=== PATIENT | female | born 1975 | race Caucasian/White ===

== ENCOUNTER → 2019-01-06 | Outpatient (CLI) | payer OTHER ==
[~2019-01-06] MED LIST: DEXAMETH; DOXY100C42 PO; LOTE5DRO4 OP; POLYMYXIN
--- NOTE | 2019-01-06 10:15 | Diagnostic Imaging Report ---
PROCEDURE: MRI right joint lower extremity without contrast. TECHNIQUE: Multiplanar, multisequence non contrast-enhanced MRI of the right lower extremity was accomplished. INDICATION: Right knee pain and swelling, occasionally locks up. EXAMINATION: MRI of the right knee without contrast 01/06/2019. FINDINGS: The extensor mechanism, ACL and PCL intact. Lateral collateral ligamentous complex demonstrates mild thickening proximally along the lateral collateral ligament proper. However no discontinuity is appreciated. The MCL is intact but there is some adjacent edema suggesting possibly a mild sprain. There is internal hyperintensity throughout the posterior horn of the medial meniscus extending throughout the remaining meniscus. This is predominantly due to myxoid degeneration. A discrete tear is not appreciated. The lateral meniscus also contains diffuse T2 hyperintensity. Along the anterior horn, it appears to likely extend to the femoral and tibial surfaces suggesting a tear. There is diffuse edema throughout Hoffa's fat pad. Some of the T2 hyperintensity appears globular in nature. There is a more focal area of abnormal signal intensity immediately anterior to the lateral meniscus possibly a parameniscal cyst. On the axial T2 fat-saturated sequence there may be a continuity with this cystic area to the remaining larger area extending proximally towards the patella. Findings may all represent a large complex parameniscal cyst with other cystic lesions not excluded. There is a small joint effusion. There is a tiny slit-like Merritt's cyst. Additional tiny cystic changes posterior to the knee consistent with multiple small ganglia. The cartilage in the medial compartment demonstrates moderate thinning with mild thinning of cartilage laterally. Patellofemoral cartilage demonstrates diffuse heterogeneity with some areas of complete loss overlying the apex and lateral facet. Subchondral cystic change in the patella also noted. Heterogeneity of the visualized bone marrow signal is likely within normal limits for the patient. No fracture is identified. There is spurring and narrowing in the patellofemoral joint. IMPRESSION: 1. Findings along the MCL possibly on the basis of a mild sprain with thickening of the proximal lateral collateral ligament perhaps due to prior injury. A superimposed mild sprain not excluded remaining ligaments and tendons intact. 2. 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 A large anterior cystic collection could represent a large parameniscal cyst. The more proximal septated complex cystic area within Hoffa's fat pad may correspond to the parameniscal cyst, however other cystic lesions including a more aggressive process such as a synovial sarcoma difficult to exclude but felt to be much less likely. Postcontrast imaging may be useful to exclude any associated enhancement. 3. Tricompartmental degenerative findings as discussed above. Other incidental findings as noted. Dictated by: Dictated on workstation # [id number]
== END ==
LOC: RAD 07:53
PROVIDERS: ATTEND Nurse Practitioner Community Health
DX: M23.306 Other meniscus derangements, unspecified meniscus, right knee (principal); M17.11 Unilateral primary osteoarthritis, right knee
CPT/HCPCS: 73721

== ENCOUNTER 2022-12-11 17:55 | Emergency (ER) | payer OTHER ==
[~2022-12-11] VITALS: Ht 170.2 cm; Wt 136.1 kg
--- NOTE | 2022-12-11 18:25 | ED Chest Pain ---
General Chief Complaint: Chest Pain Stated Complaint: CHEST PRESSURE Nursing Triage Note: PT AMBULATE TO ROOM 07 WITHOUT DIFFICULTY WITH C/O CHEST PRESSURE STARTING AT 1640 TODAY. PT STATES PAIN LASTED APPROX X10MIN. PT DENIES PAIN UPON ARRIVAL. Source: patient Exam Limitations: no limitations History of Present Illness Date Seen by Provider: December 11, 2022 Time Seen by Provider: 18:17 Initial Comments 47-year-old female presents to the emergency department today for chest pain. She states there was a tightness in her anterior chest bilaterally that started about 430 this afternoon while she was sitting at her desk wrapping things up at work. She got slightly short of breath and lightheaded with it as well. Symptoms overall lasted about 10 minutes and spontaneously resolved. She has never had similar symptoms in the past. No history of cardiac disease. Only medications include Victoza and a medicine for high blood pressure. Has not re cent fevers chills cough abdominal pain, changes in bowel or bladder habits. She has no lung issues per her report. All other systems reviewed and negative except documented per HPI. Voice recognition software was used to help create this chart Allergies and Home Medications Allergies Coded Allergies: No Known Allergies (Unverified Allergy, Mild, 12/07/08) Patient Home Medication List Home Medication List Reviewed: Yes Doxycycline Monohydrate (Doxycycline) 100 Mg Capsule, 100 MG PO BID, (Reported) Entered as Reported by: ROBEL SCHMIDT on 01/03/15756 Loteprednol Etabonate (Lotemax) 5 Ml Drops.susp, 5 ML OP BID, (Reported) Entered as Reported by: ROBEL SCHMIDT on 01/03/15756 [Dexameth/Polymyxin] , BID, (Reported) Entered as Reported by: ROBEL SCHMIDT on 01/03/15756 Review of Systems Review of Systems Constitutional: see HPI Past Tdgvnbw-Izeqyc-Odbibs Hx Patient Social History Tobacco Use?: No Smoking Status: Former Smoker Smokeless Tobacco Frequency: Never a User Use of E-Cig and/or Vaping dev: No Use of E-Cig and/or Vaping Trace: Never a User Substance use?: Yes Substance type: Marijuana Substance frequency: Couple times a week Alcohol Use?: Yes Alcohol Frequency: Once in a while Pt feels they are or have been: No Immunizations Up To Date Tetanus Booster (TDap): Less than 5yrs Seasonal Allergies Seasonal Allergies: Yes Past Medical History Tubal Ligation Asthma Family Medical History Reviewed Nursing Family Hx No Pertinent Family Hx Physical Exam Vital Signs Vital Signs - First Documented 12/11/22 18:10 Temp 36.0 Pulse 86 Resp 19 B/P (MAP) 140/70 (93) O2 Delivery Room Air Capillary Refill : Less Than 3 Seconds Height, Weight, BMI Height: 5'8" Weight: 235lbs. oz. 106.061464fh; 46.00 BMI Method:Stated General Appearance: No Apparent Distress, WD/WN HEENT: Normal ENT Inspection, Pharynx Normal Neck: Normal Inspection, Supple Respiratory: Chest Non Tender, Lungs Clear, Normal Breath Sounds, No Accessory Muscle Use, No Respiratory Distress Cardiovascular: Regular Rate, Rhythm, No Murmur, Normal Peripheral Pulses, Other (Occasional PVC on monitoring tech) Gastrointestinal: Normal Bowel Sounds, No Organomegaly, Non Tender, Soft Extremity: Normal Capillary Refill, Non Tender, No Calf Tenderness, No Pedal Edema Neurologic/Psychiatric: Alert, Oriented x3, Normal Mood/Affect Skin: Normal Color, Warm/Dry Progress/Results/Core Measures Results/Orders Lab Results Laboratory Tests Test 12/11/22 18:22 Range/Units White Blood Count 11.0 4.3-11.0 10^3/uL Red Blood Count 4.31 3.80-5.11 10^6/uL Hemoglobin 11.2 L 11.5-16.0 g/dL Hematocrit 36 35-52 % Mean Corpuscular Volume 82 80-99 fL Mean Corpuscular Hemoglobin 26 25-34 pg Mean Corpuscular Hemoglobin Concent 32 32-36 g/dL Red Cell Distribution Width 16.3 H 10.0-14.5 % Platelet Count 194 130-400 10^3/uL Mean Platelet Volume 11.6 9.0-12.2 fL Immature Granulocyte % (Auto) 0 % Neutrophils (%) (Auto) 68 42-75 % Lymphocytes (%) (Auto) 25 12-44 % Monocytes (%) (Auto) 5 0-12 % Eosinophils (%) (Auto) 2 0-10 % Basophils (%) (Auto) 0 0-10 % Neutrophils # (Auto) 7.4 1.8-7.8 10^3/uL Lymphocytes # (Auto) 2.7 1.0-4.0 10^3/uL Monocytes # (Auto) 0.6 0.0-1.0 10^3/uL Eosinophils # (Auto) 0.2 0.0-0.3 10^3/uL Basophils # (Auto) 0.0 0.0-0.1 10^3/uL Immature Granulocyte # (Auto) 0.0 0.0-0.1 10^3/uL Sodium Level 139 135-145 MMOL/L Potassium Level 3.7 3.6-5.0 MMOL/L Chloride Level 108 H 98-107 MMOL/L Carbon Dioxide Level 21 21-32 MMOL/L Anion Gap 10 5-14 MMOL/L Blood Urea Nitrogen 9 7-18 MG/DL Creatinine 0.67 0.60-1.30 MG/DL Estimat Glomerular Filtration Rate 109 BUN/Creatinine Ratio 13 Glucose Level 88 70-105 MG/DL Calcium Level 9.2 8.5-10.1 MG/DL Corrected Calcium 9.1 8.5-10.1 MG/DL Magnesium Level 2.1 1.6-2.4 MG/DL Total Bilirubin 0.5 0.1-1.0 MG/DL Aspartate Amino Transf (AST/SGOT) 16 5-34 U/L Alanine Aminotransferase (ALT/SGPT) 16 0-55 U/L Alkaline Phosphatase 53 40-136 U/L Troponin I < 0.028 <0.028 NG/ML Total Protein 6.9 6.4-8.2 GM/DL Albumin 4.1 3.2-4.5 GM/DL My Orders Orders - JOHNNY SCHRADER DO Ekg Tracing (12/11/22 18:07) Cbc With Automated Diff (12/11/22 18:24) Magnesium (12/11/22 18:24) Chest 1 View, Ap/Pa Only (12/11/22 18:24) Comprehensive Metabolic Panel (12/11/22 18:24) Ed Iv/Invasive Line Start (12/11/22 18:24) Aspirin Chewable Tablet (Baby Aspirin Ch (12/11/22 18:30) Troponin I [place] (12/11/22 18:22) Medications Given in ED Current Medications Medications Dose Ordered Sig/Delfino Route Start Time Stop Time Status Last Admin Dose Admin Aspirin 324 mg ONCE ONCE PO 12/11/22 18:30 5/8/23 18:31 DC 12/11/22 18:52 324 MG Vital Signs/I&O 12/11/22 18:10 Temp 36.0 Pulse 86 Resp 19 B/P (MAP) 140/70 (93) O2 Delivery Room Air Blood Pressure Mean: 93 Comment Independent review of twelve-lead EKG shows sinus rhythm at 86 bpm. Normal intervals. Left axis deviation. No ST or T wave abnormalities. No ectopy. No STEMI. Departure Communication (Admissions) My independent review of the AP chest x-ray shows no acute cardiopulmonary process 1920: Patient is hemodynamically stable. Heart score is 2 based on age and risk factors.. Troponin negative, EKG nonischemic. Chest x-ray is negative on my independent review. She has been symptom-free since her arrival here to the emergency department. She does have a few scattered PVCs on her bedside monitor. This may be related to her symptoms today. Regardless with a low heart score she is at low major adverse cardiac event risk over the next 30 days. She stable for outpatient follow-up with her primary care doctor in close follow-up. She is comfortable agreeable current plan of care. She is discharged in stable condition. Impression Primary Impression: Atypical chest pain Additional Impression: PVC (premature ventricular contraction) Disposition: HOME, SELF-CARE Condition: Stable Departure-Patient Inst. Referrals: KOLBY ELI MD (PCP/Family) Primary Care Physician Patient Instructions: Chest Pain, Adult ED Add. Discharge Instructions: You were seen in the emergency department today for pain in your chest. There is no indication of an emergent medical condition at this time. There is no evidence that this is from a heart attack or something from your lungs at this time. As discussed to talk to your primary care doctor about your symptoms and see if they want any further testing. Return to the emergency department should your symptoms recur or change in any way concerning to you. You did have a few PVCs, premature contractions of the lower portion of your heart while you were here. This could be related to your symptoms today. These are typically benign but if you are having symptoms sometimes they do require treatment with a low- dose of the medicine. You can discuss further with your primary doctor if your symptoms persist. All discharge instructions reviewed with patient and/or family. Voiced understanding. JOHNNY SCHRADER DO December 11, 2022 18:25
[2022-12-11] MEDS ORDERED: ASPIRIN 81 MG CHEW (CHILDREN'S ASA) PO ONE (18:30)
[2022-12-11 18:40] LABS: ALBUMIN 4.1 GM/DL (3.2-4.5); BASOPHILS % (AUTO) 0 % (0-10); CHLORIDE 108 MMOL/L (98-107); EOSINOPHILS # (AUTO) 0.2 10^3/uL (0.0-0.3); EOSINOPHILS % (AUTO) 2 % (0-10); HEMATOCRIT 36 % (35-52); HEMOGLOBIN 11.2 g/dL (11.5-16.0); LYMPHOCYTES # (AUTO) 2.7 10^3/uL (1.0-4.0); LYMPHOCYTES % (AUTO) 25 % (12-44); MEAN CORPUSCULAR HEMOGLOBIN 26 pg (25-34); MEAN CORPUSCULAR HGB CONC 32 g/dL (32-36); MEAN CORPUSCULAR VOLUME 82 fL (80-99); MEAN PLATELET VOLUME 11.6 fL (9.0-12.2); MONOCYTES # (AUTO) 0.6 10^3/uL (0.0-1.0); MONOCYTES % (AUTO) 5 % (0-12); NEUTROPHILS # (AUTO) 7.4 10^3/uL (1.8-7.8); NEUTROPHILS % (AUTO) 68 % (42-75); PLATELET COUNT 194 10^3/uL (130-400); POTASSIUM 3.7 MMOL/L (3.6-5.0); SODIUM 139 MMOL/L (135-145)
[2022-12-11 18:41] LABS: CALCIUM 9.2 MG/DL (8.5-10.1)
[2022-12-11 18:42] LABS: GLUCOSE 88 MG/DL (70-105); TOTAL PROTEIN 6.9 GM/DL (6.4-8.2)
[2022-12-11 18:43] LABS: CARBON DIOXIDE 21 MMOL/L (21-32)
[2022-12-11 18:44] LABS: BILIRUBIN,TOTAL 0.5 MG/DL (0.1-1.0)
[2022-12-11 18:46] LABS: ALKALINE PHOSPHATASE 53 U/L (40-136); CREATININE SERUM 0.67 MG/DL (0.60-1.30); GFR ESTIMATED 109
[2022-12-11 18:47] LABS: BUN/CREATININE RATIO 13
[2022-12-11 18:49] LABS: ALANINE AMINOTRANSFERASE 16 U/L (0-55); MAGNESIUM 2.1 MG/DL (1.6-2.4)
--- NOTE | 2022-12-11 18:54 | Diagnostic Imaging Report ---
INDICATION: Chest pain. COMPARISON: None available. FINDINGS: The lungs appear clear without focal airspace opacities or consolidation. There are no findings of an effusion. There is no evidence of a pneumothorax. Heart size and mediastinal contours appear appropriate. Pulmonary vascularity appears within normal limits. There is no acute or suspicious osseous abnormality demonstrated. IMPRESSION: No radiographic evidence of an acute cardiopulmonary process. Dictated by: Dictated on workstation # [id number]
[2022-12-11 19:40] VITALS: BP 118/67
== END 2022-12-11 19:40 | disposition home or self-care (01) ==
LOC: EDUNIT# 17:55 → ER 17:57
DX: R07.89 Other chest pain (principal); I49.3 Ventricular premature depolarization; I10 Essential (primary) hypertension; Z79.899 Other long term (current) drug therapy; Z87.891 Personal history of nicotine dependence; Z79.84 Long term (current) use of oral hypoglycemic drugs; Z28.310 Unvaccinated for COVID-19
CPT/HCPCS: 36415; 71045; 80053; 83735; 84484; 85025; 93005